=== PATIENT | male | born 1950 | race Caucasian/White ===

== ENCOUNTER 2021-02-28 17:40 | IRF | payer MEDICARE, MEDICAID, SELFPAY ==
--- NOTE | ~2021-02-28 | XR_ITS ---
EXAMINATION: XR chest 1V portable EXAM DATE: 03/02/2021 09:12 INDICATION: Shortness of breath. TECHNIQUE: Portable AP frontal chest x-ray was obtained. There is no prior study for comparison. FINDINGS: There is pacemaker/AICD device. There is aortic valve or stent. Some chronic hyperinflation . No confluent consolidation, pneumothorax or pleural effusion suspected. Cardiomediastinal silhouett e is normal. Large calcific curvilinear density projecting over left upper quadrant. IMPRESSION: 1. Hyperinflation. 2. No acute cardiopulmonary findings. Reviewed, dictated and finalized at location A.
[2021-02-28 17:40] VITALS: BMI 21.7
--- NOTE | 2021-02-28 18:04 | WPDREHABHP ---
H&P: HPI History of Present Illness Date/Time: 02/28/21 18:04 Chief Complaint: Cardiogenic shock Narrative: HISTORY OF PRESENT ILLNESS: The patient's primary rehab impairment category is Cardiac The etiologic diagnosis is cardiogenic shock I saw this patient [id number] on 02/28/2021 The patient is a 70-year-old male with severe aortic stenosis status post TAVR in 2018, enlarging abdominal aortic aneurysm 4.4 greater than 4.6, infrarenal abdominal aortic aneurysm 4.8 less than 5.8 since 2018, COPD, hypertension, pulmonary hypertension went into be tip V-tach VFib arrest with concerns for possible intramural hemorrhage for which the patient was emergently transferred from [place] to [facility] for vascular surgery consultation. Patient arrested on 02/04/2021 at his home around 11:00 a.m.. He was found unresponsive by his girlfriend Beckie Hickey. Patient received extensive resuscitation iwth cardioversion and meds in ambulance, ED. He was found to have AAA with possible hemorrhage and was transferred to [facility] ED. [facility] course: 1. Cardiogenic shock. Patient was hospitalized in ICU from 02/04 through . Patient had prolonged intubation. Patient required pressors. Patient had newly diagnosed heart failure with reduced ejection fraction. Patient was placed on low-dose beta-gigi Coreg 3.125 b.i.d. and losartan 25 mg daily. Patient will follow up with Dr. Hoffman in on 03/20 at 10:[address] [facility]. Patient was also continued on aspirin and a statin. 2. Complete heart block patient is now status post CR DT placement on 02/21 and continued amiodarone 400 mg daily heparin products will continue to be held. If DVT prophylaxis is required electrophysiology varitype operator must be involved. 3. Acute respiratory failure. Patient was intubated in setting of arrest extubated on 02/17 then reintubated on 02/21 for CR DT placement and extubated the same day. Patient still has O2 requirements of 2 L which patient states is his baseline. Patient also has a flail chest CT surgery was consulted and states that healing will occur within 6 weeks. 3. Diarrhea history of ileus an cardiac is intensive care unit with NG tube placement patient had aggressive bowel program and begin then developing diarrhea. Patient did receive vanc and cefepime cefepime while in ICU for presumed pneumonia. Stool cultures were negative for C diff. 4. Aortic aneurysm patient has 2 aneurysms which vascular surgery was consulted patient did receive a CTA of the chest and abdomen and pelvis for surgical planning patient will need follow-up with cardiothoracic surgery in a row in roughly at time of discharge with potential surgery 6 weeks post 5. Acute kidney injury is resolving. 6. Acute encephalopathy patient was in CCU required Ativan for delirium but since being transferred to the regular medicine floor his overall mentation has improved. 6. Patient with dysphagia patient required tube feedings while intubated ileus has now resolved. Patient currently is on a mechanical soft thin liquid diet. Patient has a hoarse quality from prolonged intubation ENT has been consult id and if no improvement with hoarseness, patient is to follow up with ENT on an outpatient basis. 7. Thrombocytopenia resolving secondary to cardiogenic shock 8. Patient fell within the hospital setting on 02/24 patient sustained no injuries. CT of the head was negative number next urinary tension on 02/27 patient had urinary retention and required cathing the patient has been started on Flomax postvoid residuals have been less than 150 and patient is now voiding well. Pertinent test results are ejection fraction of 45%. Procedures performed was in implantable cardioverter defibrillator dual-chamber and implantable cardioverter defibrillator ICD placement Therapy was initiated at the acute care facility and the patient transferred to us from [facility] on 02/29/20
--- NOTE | 2021-02-28 18:37 | ADMGEN ---
This patient, Naveen Bonds, was admitted to [facility] Room 222-02. Patient/family oriented to hospital policies and general routines including ID bracelet, bed and alarms, visiting hours, pain management, procedures, bathroom and other care routines, personal items, smoking policy, room service/diet, and visiting hours. Information on how to activate the Rapid Response Team has been discussed. Patient/Family are encouraged to report perceived risks to care and to ask questions if they do not understand what they are told or what they should do. Patient arrived to [facility] via [facility] at 1740, per EMS no issues on the way here but did use his albuterol inhaler several times, this is apparently something he does often and routinely, He is alert and oriented to person, place, and time
[2021-02-28 19:00] VITALS: BP 148/96; PULSE 81; RESP 20; TEMP 35.8; O2SAT 100
[2021-02-28 20:40] VITALS: PULSE 80; RESP 16; O2SAT 98
[2021-02-28 22:00] VITALS: BP 149/83; PULSE 80; RESP 16; TEMP 36.1; O2SAT 98
[2021-02-28] MEDS: TAMSULOSIN HCL 0.4 MG CAPSULE PO (22:18)
[2021-02-28 22:19] VITALS: PULSE 80
[2021-02-28] MEDS: carvediloL 3.125 MG TABLET PO (22:19)
[2021-03-01] VITALS (13 sets, daily range): BP systolic 105–133; BP diastolic 67–97; PULSE 78–85; RESP 18–30; TEMP 35.4–36.1; O2SAT 95–100; BMI 21.7
[2021-03-01 05:39] LABS: Basophils Percent Auto 0.1 % (0.2-1.2); Eosinophils Absolute Auto 0.1 K/mm3 (0-0.3); Eosinophils Percent Auto 1.4 % (0-4.4); Hematocrit 31.5 % (42.0-52.0); Hemoglobin 9.9 g/dL (14.0-18.0); Immature Granulocyte Absolute 0.03 K/mm3 (0.00-0.031); Immature Granulocyte Percent A 0.4 % (0-0.5); Immature Platelet Fraction Pct 9.2 % (0.9-11.2); Lymphocytes Absolute Auto 1.36 K/mm3 (0.9-3.2); Lymphocytes Percent Auto 18.4 % (18.3-44.2); Mean Corpuscular HGB Conc 31.4 g/dl (32-36); Mean Corpuscular Hemoglobin 28.5 pg (26-34); Mean Corpuscular Volume 90.8 fl (80-100); Mean Platelet Volume 11.5 fl (7.4-10.4); Monocytes Absolute Auto 1.3 K/mm3 (0.1-0.6); Monocytes Percent Auto 18.2 % (2.6-8.5); Neutrophils Absolute Auto 4.5 K/mm3 (1.3-6.7); Neutrophils Percent Auto 61.5 % (45.5-73.1); Platelet Count Result 123 k/mm3 (150-375); Red Blood Count 3.47 M/mm3 (4.6-6.20); Red Cell Distribution Width 14.9 % (11.5-14.5); White Blood Count 7.4 K/mm3 (4.5-10.0)
[2021-03-01 05:45] LABS: Alanine Aminotransferase 14 U/L (4-50); Albumin Level 3.4 g/dL (3.5-5.1); Alkaline Phosphatase 96 U/L (38-126); Anion Gap 3 mmol/L (8-16); Aspartate Amino Transferase 25 U/L (17-59); Bilirubin,Total 0.5 mg/dL (0.2-1.3); Blood Urea Nitrogen 5 mg/dL (9-20); Calcium 8.6 mg/dL (8.4-10.2); Carbon Dioxide 29 mmol/L (22-30); Chloride 98 mmol/L (98-107); Estimated CRCL calculation 69 ml/min; Estimated Glomerular Filt Rate > 60; Glucose 87 mg/dL (75-110); Potassium 4.4 mmol/L (3.4-5.0); Sodium 130 mmol/L (137-145)
[2021-03-01] MEDS: IPRATROPIUM BR 0.02% INH SOLN 0.5 MG/2.5 ML VIAL INHALATION ×2 (08:33→20:28)
[2021-03-01] MEDS: ATORVASTATIN 40 MG TABLET PO (09:21)
[2021-03-01] MEDS: carvediloL 3.125 MG TABLET PO ×2 (09:21→20:53)
[2021-03-01] MEDS: LOSARTAN POTASSIUM 25 MG TABLET PO (09:21)
[2021-03-01] MEDS: AMIODARONE HCL 200 MG TABLET 400 MG PO (09:22)
[2021-03-01] MEDS: ASPIRIN 81 MG ENTERIC TABLET PO (09:22)
--- NOTE | 2021-03-01 13:38 | PCSTNOTE ---
Please refer to the Bedside Swallow Evaluation in the EMR. Please note, silent aspiration cannot be ruled out at bedside.
--- NOTE | 2021-03-01 16:43 | WPDNEURORHBP ---
Subjective Date/time seen: 03/01/21 16:43 diagnosis is cardiogenic shock The patient is a 70-year-old male with severe aortic stenosis status post TAVR in 2018, enlarging abdominal aortic aneurysm 4.4 greater than 4.6, infrarenal abdominal aortic aneurysm 4.8 less than 5.8 since 2018, COPD, hypertension, pulmonary hypertension went into be tip V-tach VFib arrest with concerns for possible intramural hemorrhage for which the patient was emergently transferred from [place] to [facility] for vascular surgery consultation. Patient arrested on 02/04/2021 at his home around 11:00 a.m.. He was found unresponsive by his girlfriend Beckie Hickey. Patient received extensive resuscitation iwth cardioversion and meds in ambulance, ED. He was found to have AAA with possible hemorrhage and was transferred to [facility] ED. [facility] course: 1. Cardiogenic shock. Patient was hospitalized in ICU from 02/04 through . Patient had prolonged intubation. Patient required pressors. Patient had newly diagnosed heart failure with reduced ejection fraction. Patient was placed on low-dose beta-gigi Coreg 3.125 b.i.d. and losartan 25 mg daily. Patient will follow up with Dr. Hoffman in on 03/20 at 10:00 a.m. at [facility]. Patient was also continued on aspirin and a statin. 2. Complete heart block patient is now status post CR DT placement on 02/21 and continued amiodarone 400 mg daily heparin products will continue to be held. If DVT prophylaxis is required electrophysiology metallurgical analyst must be involved. 3. Acute respiratory failure. Patient was intubated in setting of arrest extubated on 02/17 then reintubated on 02/21 for CR DT placement and extubated the same day. Patient still has O2 requirements of 2 L which patient states is his baseline. Patient also has a flail chest CT surgery was consulted and states that healing will occur within 6 weeks. 3. Diarrhea history of ileus an cardiac is intensive care unit with NG tube placement patient had aggressive bowel program and begin then developing diarrhea. Patient did receive vanc and cefepime cefepime while in ICU for presumed pneumonia. Stool cultures were negative for C diff. 4. Aortic aneurysm patient has 2 aneurysms which vascular surgery was consulted patient did receive a CTA of the chest and abdomen and pelvis for surgical planning patient will need follow-up with cardiothoracic surgery in a row in roughly at time of discharge with potential surgery 6 weeks post 5. Acute kidney injury is resolving. 6. Acute encephalopathy patient was in CCU required Ativan for delirium but since being transferred to the regular medicine floor his overall mentation has improved. 6. Patient with dysphagia patient required tube feedings while intubated ileus has now resolved. Patient currently is on a mechanical soft thin liquid diet. Patient has a hoarse quality from prolonged intubation ENT has been consult id and if no improvement with hoarseness, patient is to follow up with ENT on an outpatient basis. 7. Thrombocytopenia resolving secondary to cardiogenic shock 8. Patient fell within the hospital setting on 02/24 patient sustained no injuries. CT of the head was negative number next urinary tension on 02/27 patient had urinary retention and required cathing the patient has been started on Flomax postvoid residuals have been less than 150 and patient is now voiding well. Pertinent test results are ejection fraction of 45%. Procedures performed was in implantable cardioverter defibrillator dual-chamber and implantable cardioverter defibrillator ICD placement Therapy was initiated at the acute care facility and the patient transferred to us from [facility] on 02/28/2021 Review of Systems Constitutional: Constitutional: Reports fatigue and Reports weakness Eyes: Eyes: Reports no additional eye complaints Cardiovascular: Cardiovascular: Reports no additional cardiovascular co
[2021-03-01] MEDS: BUDESONIDE/FORMOTEROL (*SP) 160-4.5 MCG 6 GM INH 1 PUFF INHALATION (17:07)
[2021-03-01] MEDS: TAMSULOSIN HCL 0.4 MG CAPSULE PO (17:07)
[2021-03-02 06:00] VITALS: BP 125/66; PULSE 55; RESP 24; TEMP 35.9; O2SAT 97
[2021-03-02] MEDS: BUDESONIDE/FORMOTEROL (*SP) 160-4.5 MCG 6 GM INH 1 PUFF INHALATION (07:52)
[2021-03-02] MEDS: IPRATROPIUM BR 0.02% INH SOLN 0.5 MG/2.5 ML VIAL INHALATION (07:52)
[2021-03-02 07:53] VITALS: PULSE 83; RESP 20
[2021-03-02 08:00] VITALS: O2SAT 97
--- NOTE | 2021-03-02 09:00 | ECG_ITS ---
Measurements Intervals [place] Rate: 80 P: 267 NH: 121 QRS: 79 QRSD: 150 T: 247 QT: 520 QTc: 600 Interpretive Statements ELECTRONIC ATRIAL PACEMAKER ELECTRONIC VENTRICULAR PACEMAKER BASELINE ARTIFACT- I, II, III, AVR, AVL, AVF, V1-V6 NO FURTHER INTERPRETATION IS POSSIBLE ATYPICAL ECG Electronically Signed On 03-02-2021 10:29:32 CDT by Kayden Melchor D.O.
[2021-03-02 09:11] LABS: Glucose Point of Care 95 mg/dl (65-105)
[2021-03-02 09:20] LABS: Glucose Point of Care 93 mg/dl (65-105)
[2021-03-02 09:48] LABS: Alveolar/Arterial O2 Gradient 127.3 mmHg; Base Excess ABG 1.2 mEq/l (+/-2.0); Fractional Inspired Oxygen 32 %; HCO3 ABG 26.8 mEq/l (22.0-26.0); Oxygen Content ABG 11.5 %vol (16.0-22.0); PCO2 ABG 47.2 mmHg (35.0-45.0); PO2 FiO2 Ratio Arterial Blood 1.42 %; Total Hemoglobin 10.5 g/dL (12.0-18.0); pH ABG 7.372 (7.350-7.450)
[2021-03-02 09:53] LABS: PO2 ABG 45.6 mmHg (80.0-100.0)
--- NOTE | 2021-03-02 09:56 | PCPTNOTE ---
Attempted to see patient at 8:30 this AM for PT session. Patient demonstrated shortness of breath and complained of dizziness. RN and Dr. Ray informed. Patient did not complete any PT minutes this AM. Sindy Madrid PTA
--- NOTE | 2021-03-02 10:18 | PC.NURSE ---
Addendum entered by Lily Magana RN 03/02/21 10:23: code blue was cancelled. Original Note: late entry: 929: Rapid Response was called. Dr Ray in patient's room when nursing arrived. Patient was SOB and stated his SPO2 kept dropping. Patient had become unresponsive for a short amount of time. Accucheck obtained and patient noted at 75. Patient was also noted to be diaphoretic as well. Stat EKG et CXR obtained. Nursing still at bedside and called back due to patient not responding again. Patient again noted to be diaphoretic. Shawna danielson was called. compressions started et patient coughed then rolled to side. nursing attempting to start an IV. patient continued to have o2 on per nasal cannula. continues to be at bedside as well. patient being moved to ICU 1. Report given to [place]. pt moved off unit at approximately 0944.
[2021-03-02 10:32] VITALS: BP 87/56; PULSE 78; RESP 16; O2SAT 98
--- NOTE | 2021-03-02 15:48 | PM.TDS ---
Transfer Discharge Sum: Prov Provider Date of admission: 02/28/21 17:40 Primary care physician: UNKNOWN,DOCTOR Admitting clinician: Aria De Guzman DO DS: Admitting Diagnosis Admitting Diagnosis Admitting Diagnosis: significant cardiac hospital stay with cardiogenic shock DS: Discharge Diagnosis Discharge Diagnosis (1) Hypertension: Code(s): I10 - Essential (primary) hypertension Status: Acute Assessment and Plan: Cozaar 25 mg daily Coreg 3.125 mg q.12 (2) Pulmonary hypertension: Code(s): I27.20 - Pulmonary hypertension, unspecified Status: Acute (3) COPD (chronic obstructive pulmonary disease): Code(s): J44.9 - Chronic obstructive pulmonary disease, unspecified Status: Acute Assessment and Plan: Atrovent q.12, Symbicort 1 puff daily (4) Cardiogenic shock: Code(s): R57.0 - Cardiogenic shock Status: Acute Assessment and Plan: amiodarone 400 mg daily aspirin 81 mg daily (5) Abdominal aortic aneurysm: Code(s): I71.4 - Abdominal aortic aneurysm, without rupture Status: Acute (6) Cardiac arrest: Code(s): I46.9 - Cardiac arrest, cause unspecified Status: Acute (7) History of difficult intubation: Code(s): Z91.89 - Other specified personal risk factors, not elsewhere classified Status: Acute (8) Flail chest: Code(s): S22.5XXA - Flail chest, initial encounter for closed fracture Status: Acute (9) History of ileus: Code(s): Z87.19 - Personal history of other diseases of the digestive system Status: Acute (10) BPH (benign prostatic hyperplasia): Code(s): N40.0 - Benign prostatic hyperplasia without lower urinary tract symptoms Status: Acute Assessment and Plan: Flomax (11) Anisocoria: Code(s): H57.02 - Anisocoria Status: Acute (12) Cardiomyopathy: Code(s): I42.9 - Cardiomyopathy, unspecified Status: Acute Transfer Discharge Sum: Med Medications Active and Home Medications: Home Medications albuterol 90 mcg INHALATION Q4H PRN 02/28/21 [History Confirmed 03/02/21] albuterol sulfate 2.5 mg INHALATION Q6H PRN 02/28/21 [History Confirmed 03/02/21] ipratropium bromide [Atrovent] 2.5 ml INHALATION BID 02/28/21 [History Confirmed 03/02/21] Transfer Discharge Sum: Hosp Hospital Course Hospital course: The patient is a 70-year-old male with severe aortic stenosis status post TAVR in 2018, enlarging abdominal aortic aneurysm 4.4 greater than 4.6, infrarenal abdominal aortic aneurysm 4.8 less than 5.8 since 2018, COPD, hypertension, pulmonary hypertension went into be tip V-tach VFib arrest with concerns for possible intramural hemorrhage for which the patient was emergently transferred from [place] to [facility] for vascular surgery consultation. Patient arrested on 02/04/2021 at his home around 11:00 a.m.. He was found unresponsive by his girlfriend Beckie Hickey. Patient received extensive resuscitation iwth cardioversion and meds in ambulance, ED. He was found to have AAA with possible hemorrhage and was transferred to [facility] ED. [facility] course: 1. Cardiogenic shock. Patient was hospitalized in ICU from 02/04 through . Patient had prolonged intubation. Patient required pressors. Patient had newly diagnosed heart failure with reduced ejection fraction. Patient was placed on low-dose beta-gigi Coreg 3.125 b.i.d. and losartan 25 mg daily. Patient will follow up with Dr. Hoffman in on 03/20 at 10:00 a.m. at [facility]. Patient was also continued on aspirin and a statin. 2. Complete heart block patient is now status post CR DT placement on 02/21 and continued amiodarone 400 mg daily heparin products will continue to be held. If DVT prophylaxis is required electrophysiology call or contact centre team leader must be involved. 3. Acute respiratory failure. Patient was intubated in setting of arrest extubated o
[2021-03-03 07:33] LABS: Device NASAL CANNULA
== END 2021-03-02 09:44 | disposition short-term general hospital (02) | DRG 293 ==
PROVIDERS: Internal Medicine; Admitting Provider Physical Medicine & Rehabilitation; Visit Provider Physical Medicine & Rehabilitation
DX: R57.0 Cardiogenic shock (principal); I71.4 Abdominal aortic aneurysm, without rupture; R06.09 Other forms of dyspnea; R61 Generalized hyperhidrosis; R46.4 Slowness and poor responsiveness; R13.10 Dysphagia, unspecified; D69.6 Thrombocytopenia, unspecified; I35.0 Nonrheumatic aortic (valve) stenosis; I10 Essential (primary) hypertension; I27.20 Pulmonary hypertension, unspecified; J44.9 Chronic obstructive pulmonary disease, unspecified; L89.151 Pressure ulcer of sacral region, stage 1; W19.XXXD Unspecified fall, subsequent encounter; Z86.74 Personal history of sudden cardiac arrest; Z98.890 Other specified postprocedural states; Z95.2 Presence of prosthetic heart valve; Z87.891 Personal history of nicotine dependence; R53.1 Weakness; Z48.812 Encounter for surgical aftercare following surgery on the circulatory system; Z95.810 Presence of automatic (implantable) cardiac defibrillator; R39.11 Hesitancy of micturition; S22.5XXD Flail chest, subsequent encounter for fracture with routine healing
CPT/HCPCS: 36415; 36600; 71045; 80053; 82805; 82948; 85025; 85055; 92610; 93005; 94640; 97110; 97161; 97165; A9270

== ENCOUNTER 2021-03-02 09:50 | Inpatient (IN) | payer MEDICARE, MEDICAID, SELFPAY ==
[2021-03-02] VITALS (29 sets, daily range): BP systolic 71–140; BP diastolic 35–96; PULSE 67–104; RESP 24–34; TEMP 34.3–36.6; O2SAT 91–100; BMI 21.3
--- NOTE | 2021-03-02 | ECHO_ITS ---
Patient Info Name: Naveen Bonds Age: 70 years : 1950 Gender: Male Ht: 69 in Wt: 160 lbs BSA: 1.88 m2 HR: 80 bpm BP: 76 / 51 mmHg Heart Rhythm: Paced Technical Quality: Good Exam Date: 03/02/2021 1:07 PM Exam Location: [facility] Patient Status: Inpatient Admit Date: 03/02/2021 Staff Ordering Physician: Hardeep Ling MD Data Collection Associate: Bennie Manrique, MARK, RT Attending Provider: Kiana Feldman MD Exam Type: CA echo dop color flow w con Study Info Indications I50.9 - Heart failure, unspecified Complete two-dimensional, color flow and Doppler transthoracic echocardiogram is performed with contrast to opacify the left ventricle and to improve the deliniation of the left ventricle endocardial borders. Summary 1. Technically difficult study with limited views. 2. Left ventricular chamber dimension is normal. 3. Left ventricular systolic function is mildly reduced, estimated at 45-50%. 4. There is moderately increased left ventricular wall thickness. 5. Left ventricular septal wall motion is abnormal with septal motion related to pacing. 6. There is mild mitral valve regurgitation. 7. There is mild tricuspid valve regurgitation. 8. No pulmonary hypertension, estimated pulmonary arterial systolic pressure is 34 mmHg. 9. There is no TAVR aortic valve stenosis with peak velocity 1.8 m/sec, mean gradient 7 mmHg. 10. There is no regurgitation of the TAVR aortic valve. Left Ventricle Left ventricular chamber dimension is normal. Left ventricular systolic function is mildly reduced, estimated at 45-50%. There is moderately increased left ventricular wall thickness. Left ventricular septal wall motion is abnormal with septal motion related to pacing. The left ventricular diastolic function is grade I diastolic dysfunction. Technically difficult study with limited views. Right Ventricle Right ventricular chamber dimension is normal. Right ventricular systolic function is normal. Linear artifact in right ventricle suggestive of catheter(s), pacemaker lead(s), or ICD lead(s). Left Atria Left atrial chamber dimension is not well visualized. Right Atria Right atrial chamber dimension is not well visualized. Linear artifact in the right atrium suggestive of catheter(s), pacemaker lead(s), or ICD lead(s). Aortic Valve The TAVR aortic valve is not well visualized. There is no TAVR aortic valve stenosis with peak velocity 1.8 m/sec, mean gradient 7 mmHg. There is no regurgitation of the TAVR aortic valve. Pulmonic Valve The pulmonic valve is not well visualized. There is trace pulmonic regurgitation. Mitral Valve The mitral valve has thickened leaflets. There is mild mitral valve regurgitation. The mitral valve annulus is mildly calcified. Tricuspid Valve The tricuspid valve leaflets are normal. There is mild tricuspid valve regurgitation. No pulmonary hypertension, estimated pulmonary arterial systolic pressure is 34 mmHg. Pericardium/Pleural The pericardium appears normal. There is trivial pericardial effusion. Inferior Vena Cava Normal inferior vena cava with >50% collapse upon inspiration consistent with normal right atrial pressure, 5 mmHg. Aorta The aortic root size at the sinus of Valsalva is normal. Left Ventricular Outflow Tract Name Value Normal
--- NOTE | ~2021-03-02 | US_ITS ---
EXAMINATION: US venous doppler LE EXAM DATE: 03/02/2021 15:07 INDICATION: Shortness of breath. DVT. Respiratory problem. TECHNIQUE: Multiple grayscale, color flow and Doppler images of the lower extremity deep venous syste ms bilaterally were obtained and reviewed. There is no prior study for comparison. FINDINGS: RIGHT SIDE Common femoral: --------Oval-shaped 5 x 10 mm intraluminal region, probably thrombus. Profunda femoral: ------- Normal. Femoral: Normal. Popliteal: Normal. Posterior tibial: --------- Normal. Peroneal: Normal. Gastrocnemius: Not visualized. Soleus: Not visualized. Greater saphenous: ----- Normal. Lesser saphenous: ------ Not visualized. LEFT SIDE Common femoral: -------- Normal. Profunda femoral: ------- Normal. Femoral: Normal. Popliteal: Normal. Posterior tibial: --------- Normal. Peroneal: Normal. Gastrocnemius: Not visualized. Soleus: Not visualized. Greater saphenous: ----- Normal. Lesser saphenous: ------ Not visualized. IMPRESSION: 1. Oval echogenicity in left common femoral vein most likely thrombus. Reviewed, dictated and finalized at location A.
--- NOTE | ~2021-03-02 | CT_ITS ---
EXAMINATION: CT brain wo [facility] EXAM DATE: 03/02/2021 12:00 INDICATION: Unequal Pupils TECHNIQUE: Spiral CT of the head was performed without contrast. Axial, coronal and sagittal images were reviewed. The dose-length product (DLP) for this examination was 605.33 mGy-cm. The exposure w as tailored according to patient size, and iterative reconstruction (ASIR) was used as additional dos e reduction technique. There is no prior study for comparison. FINDINGS: There is no acute intraparenchymal hemorrhage. No evidence of intraparenchymal brain mass lesion. No evidence of acute infarction. Please note that initial head CT has limited sensitivity f or small or acute infarctions. There is mild periventricular and subcortical hypodensity, nonspecific but probably related to small vessel ischemic disease. There is moderate prominence of the sulci a nd ventricles related to cerebral atrophy. There is intracranial carotid arteriosclerosis. There a re no extra-axial collections. There is no mass effect or midline shift. The orbits are unremarkabl e. Soft tissue is unremarkable. The visualized sinuses and mastoid air cells are well aerated. IMPRESSION: 1. No acute intracranial findings. 2. Chronic age related findings. Reviewed, dictated and finalized at location A.
--- NOTE | ~2021-03-02 | CT_ITS ---
EXAMINATION: CTA chest PE abdomen pel EXAM DATE: 03/02/2021 12:01 INDICATION: PEA Arrest, AAA. Unable pupils. TECHNIQUE: Spiral CTA of the chest (pulmonary arteries) was performed with 100 cc Omnipaque 350 intr avenous contrast injection. Images were acquired during the pulmonary arterial phase. Coronal maxi mum intensity projection 3D-reconstructions were created by the technologist on dedicated workstation . Axial, coronal and sagittal reformatted images were reviewed. Spiral CT of the abdomen and pelvis was then performed with the same intravenous contrast injection. Axial, coronal and sagittal reform atted images were reviewed. The dose-length product (DLP) for this examination was 783.99 mGy-cm. T he exposure was tailored according to patient size (auto mA exposure control), and iterative reconst ruction (ASIR) was used as additional dose reduction technique. There is no prior study for comparis on. FINDINGS: CHEST: There is a lingular segmental pulmonary embolism. There is a stent across the aortic valve. M ildly aneurysmal ascending aorta at 4.4 cm. No aortic dissection. No thoracic aortic dissection. Mi ld to moderate emphysema. There is a nodule of soft tissue density in the left upper lobe perihilar r egion measuring 1.6 x 1.1 cm, most likely primary lung cancer. Central location precludes CT-guided b iopsy. Recommend PET/CT to evaluate possibility of lung cancer. There is mild to moderate emphysema. Some scattered regions of post infectious residua. Right lower lobe subsegmental atelectasis. Small r ight pleural effusion. Tracheobronchial tree is patent. There is no mediastinal, hilar or axillary lymphadenopathy. There is no pneumothorax. Heart normal in size. There is mild coronary arteri al calcification, arterial sclerosis. ABDOMEN PELVIS: The abdominal aorta has fusiform aneurysmal dilation up to 6 cm, starting about 2 cm below the renal arteries. There is also difference in density between plaque or thrombus and also a c rescent-shaped portion of the right posterolateral aortic wall, appearance highly suggestive of intra mural dissection/wall hematoma. No fat stranding surrounding the aorta. There is also more saccular portion to the aneurysm at its uppermost margin measuring about 1.5 cm. The liver, spleen, adrenal glands and pancreas are unremarkable. Gallbladder is unremarkable. No bi liary obstruction. Portal and splenic veins are patent. Kidneys enhance symmetrically. There is no hydronephrosis. The prostate is unremarkable. The bladder is collapsed with Rubin catheter balloo n anchor inside. There is no retroperitoneal or pelvic lymphadenopathy. There are no findings to suggest appendicitis. The stomach and small bowel are unremarkable. There is dense material in the colon probably barium from prior procedure. Diffuse bladder wall edema suspi cious for colitis. No free intraperitoneal gas. There are no osteoblastic or osteolytic lesions ginette ntified. IMPRESSION: 1. Both fusiform and saccular infrarenal abdominal aortic aneurysms, with probable acute intramural hematoma/dissection. Reportedly this is known finding. 2. Lingular segmental pulmonary embolism, low clot burden. 3. Left upper lobe perihilar nodule most likely lung cancer; recommend PET/CT. 4. Ascending aortic 4.4 cm aneurysm. 5. Small right pleural effusion. 6. Diffuse bladder wall mild to moderate edema suspicious for colitis. I discussed abdominal aneurysm with intramural hematoma, pulmonary embolism, left upper lobe nodule mindi Ling at 03/02/2021 12:25 CDT. He states patient was recently discharged from [facility] having been evaluated for abdominal hernia and intramural hematoma. Study is being pushed to [facility] and a disc being prepared. Reviewed, dictated and finalized at [facility]
--- NOTE | 2021-03-02 10:00 | P.PNCROSS_ITS ---
Event Note Event Note Event Note: INTELLIGENCE APPLICATIONS Note 9:00 am called to INTELLIGENCE APPLICATIONS , pt was reported to have become diaphoretic, unresponsive; at time of my arrival he was found to be diaphoretic and pursed lipped breathing using accessory muscles,oriented with improving alertness. BG 70 juice given to pt . pt w end stage COPD considered to have returned to baseline. VS stable rapid response terminated 10 minutes later pt again lost consciousness. diaphoretic w loss of normal color to face, brief period of agonal breathing, pulse was not able to be palpated, and CPR initiated. Pt opened his eyes almost immediately after CPR initiated and was rolled to his side to prevent aspiration, if vomiting were to occur. He has PPM/AICD that did not deliver a shock. He remained conscious and ICU attending arrived. He again returned to his baseline mental status continued to breath w pursed lip breathing pattern and using accessory muscles (reported to be his baseline). VS stable and pt transferred to ICU for close observation and for further investigation of etiology of events today.
--- NOTE | 2021-03-02 10:03 | ADMGEN ---
This patient, Naveen Bonds, was admitted to Intensive Care Unit-1. Patient/family oriented to hospital policies and general routines including ID bracelet, bed and alarms, visiting hours, pain management, procedures, bathroom and other care routines, personal items, smoking policy, room service/diet, and visiting hours. Patient was moved from [facility] after rapid response Information on how to activate the Rapid Response Team has been discussed. Patient/Family are encouraged to report perceived risks to care and to ask questions if they do not understand what they are told or what they should do.
--- NOTE | 2021-03-02 10:29 | WPDCNINT ---
Assessment and Plan Assessment and plan (1) Cardiac arrest: Code(s): I46.9 - Cardiac arrest, cause unspecified Status: Acute Assessment and Plan: Patient had a brief episode where the staff to not feel his pulse and I was told it lasted only 10 seconds. He received 1 compression and then woke up so it is hard to know what exactly happened. Patient has pacemaker and AICD on credit and collection manager. Patient was not shocked by his AICD and EKG showed AV paced rhythm at a rate of 80. Patient could have had arrhythmia, or PEA from low blood pressure as patient has severe cardiomyopathy, another likely possibility could be PE as patient was not on any DVT prophylaxis but was of active as per staff from rehab Check CTA lungs Interrogate his pacemaker/AICD Blood pressure is now adequate but will give a small fluid bolus Check electrolytes, hemoglobin, lactic acid, troponin Repeat echocardiogram Continue amiodarone Cardiology consult (2) Cardiomyopathy: Code(s): I42.9 - Cardiomyopathy, unspecified Status: Acute Assessment and Plan: Check echocardiogram (3) Acute respiratory failure: Code(s): J96.00 - Acute respiratory failure, unspecified whether with hypoxia or hypercapnia Status: Inactive Assessment and Plan: Chest x-ray done this morning does not show any infiltrates or pulmonary edema Appears to be secondary severe COPD Patient is not very hypoxic and is maintaining his saturation O2 to 3 L of oxygen but is definitely tachypneic and using accessory muscles Will use BiPAP now and an and on as needed basis Check CTA to rule out PE (4) COPD (chronic obstructive pulmonary disease): Code(s): J44.9 - Chronic obstructive pulmonary disease, unspecified Status: Acute Assessment and Plan: DuoNebs and Solu-Medrol (5) Flail chest: Code(s): S22.5XXA - Flail chest, initial encounter for closed fracture Status: Acute Assessment and Plan: He developed placed test after rib fractures from his CPR on his last admission. Patient was evaluated by thoracic surgery at [facility] recently and they recommended conservative management It is not impacting his ventilation as noted on his ABG Will order BiPAP for work of breathing support (6) Abdominal aortic aneurysm: Code(s): I71.4 - Abdominal aortic aneurysm, without rupture Status: Acute Assessment and Plan: Check CT abdomen pelvis (7) Anisocoria: Code(s): H57.02 - Anisocoria Status: Acute Assessment and Plan: Noted on physical exam. Patient denies any history of eye surgery Will check head CT as patient is already going for CT chest Additional Plan DVT prophylaxis -Lovenox Nutrition -NPO at this time Code Status -discussed with patient. He does not want to be intubated but but also wants to be Full Code Total Critical Care Time - 60 minutes Due to a high probability of clinically significant, life threatening deterioration, the patient required my highest level of preparedness to intervene emergently and I personally spent this critical care time directly and personally managing the patient. This critical care time included obtaining a history; examining the patient; pulse oximetry; ordering and review of studies; arranging urgent treatment with development of a management plan; evaluation of patient's response to treatment; frequent reassessment; and discussions with other providers. It was exclusive of separately billable procedures and treating other patients and teaching time. Please see Assessment and Plan section and the rest of the note for further information on patient assessment and treatment Director Cpg Consult Note Consult date: 03/02/21 Time Seen: 09:30 HPI: Naveen Bonds is a 70 year old male with past medical history of severe aortic stenosis status post TAVR in 2018, enlarging abdominal aortic aneurysm since 2018, COPD, hypertension, pulmonary hypertension who was rece
[2021-03-02] MEDS: LIDOCAINE HCL 1% LOCAL INJ 2 ML AMPUL 5 ML INFILTRATE (10:40)
--- NOTE | 2021-03-02 11:00 | PM.IMHP ---
H&P: HPI History of Present Illness Date/Time: 03/02/21 10:37 70yo M w admitted to ICU from inpatient rehab after 2 periods of unresponsiveness. The second episode pt was found to be pulseless and a Code Blue was called, no ACLS medications were administered and pt become responsive after chest compressions were initiated. Prior to rehab he was treated in ER at [place] after he suffered a cardiac arrest on 02/04/2021 at his home. He was resuscitated and subsequently found to have AAA with possible hemorrhage and was transferred to [facility] for CTS consultation for possible intramural hemorrhage. Patient was hospitalized in ICU from 02/04- 02/22. Patient had prolonged intubation with cardiogenic shock, ROWAN, and complete heart block requiring implantable cardioverter defibrillator dual-chamber ICD placement placement on 02/21/21.Pt was discharged from [facility] on 02/28/21 and transferred to [place] inpt rehab. Chief Complaint: brief episode of unresponsiveness x 2 Review of Systems Review of Systems: All systems reviewed & are unremarkable except as noted in HPI and below PMFSH Past Medical History Medical History Abdominal aortic aneurysm Acute kidney injury Acute respiratory failure Aortic stenosis Cardiogenic shock COPD (chronic obstructive pulmonary disease) Encephalopathy History of difficult intubation History of ileus Hypertension Pulmonary hypertension Required emergency intubation Surgical History Surgical History History of permanent cardiac pacemaker placement S/P TAVR (transcatheter aortic valve replacement) Family History Family History Other No pertinent family history Social History Social History Social History: patient was a former smoker quit 3 years ago. Patient lives with his girlfriend. Patient has 1 son and 1 daughter. Patient lives with his girlfriend in a 1 level home with a basement. There are 5 steps to enter. The patient does not need to use the basement. The patient was completely independent prior to no assistive devices. The significant other is available to assist the patient 247 if needed. Smoking packs per day: 1 Smoking cigarettes per day: 20.0 Years smoked: 50 Smoking pack-years: 50.00 Smoking status: Current every day smoker Tobacco type: cigarettes Second hand tobacco smoke exposure: No Smoking end date: 03/02/18 Alcohol intake: former Drinks per week: 0 Substance use: never Gender identity (if verbalized by the patient): Male Spiritual care concerns: No Meds Home Medications and Allergies Home Medications Medication Instructions Recorded Confirmed Type albuterol 90 mcg INHALATION Q4H PRN 02/28/21 03/02/21 History albuterol sulfate 2.5 mg INHALATION Q6H PRN 02/28/21 03/02/21 History ipratropium bromide [Atrovent] 2.5 ml INHALATION BID 02/28/21 03/02/21 History Allergies Allergy/AdvReac Type Severity Reaction Status Date / Time No Known Allergies Allergy Verified 02/28/21 21:47 Vital Signs Vital Signs - 24 hr 03/02/21 10:00 03/02/21 10:02 03/02/21 11:12 Temperature 95.9 F L Pulse Rate 82 84 Respiratory Rate 28 H Blood Pressure 131/93 H Pulse Oximetry 98 98 98 03/02/21 11:28 03/02/21 11:29 03/02/21 11:30 Temperature 93.9 F L 93.9 F L 93.9 F L Pulse Rate 80 80 Respiratory Rate 32 H 29 H Blood Pressure 75/56 L 86/61 L Pulse Oximetry 98 100 03/02/21 12:00 03/02/21 12:15 03/02/21 12:30 Temperature 94 F L 93.8 F L 93.9 F L Pulse Rate 84 80 82 Respiratory Rate 31 H 27 H 24 H Blood Pressure 78/57 L 86/58 L 93/77 L Pulse Oximetry 98 100 96 03/02/21 12:49 03/02/21 13:00 03/02/21 13:30 Temperature 93.8 F L 94.2 F L Pulse Rate 80 82 67 Respiratory Rate 30 H 33 H
--- NOTE | 2021-03-02 11:05 | PM.CNCAR ---
Assessment and Plan Additional Plan 1- Unresponsive episode this morning likely secondary to low blood pressure. 2- new diagnosis of pulmonary embolism 2- history of ventricular tachycardia and cardiac arrest status post AICD. 3- severe nonischemic cardiomyopathy. 4- debility 5- infrarenal aortic aneurysm, stable this patient had a long history with recent cardiopulmonary arrest and ventricular tachycardia February 04, 2021. At that time was admitted to [facility] where he underwent cardiac catheterization that was reported no significant CAD and underwent AICD. This morning he had a brief episode of unresponsiveness and with inability to feel pulse and at that time his blood pressure was in the 80s. Blood sugar was okay. He is hypothermic. patient was not getting DVT prophylaxis because of intramural hematoma of the infra renal aortic aneurym. CT of chest shows acute pulomnary embolism. if there is contra-indication for anticoagulation, consider IVC filter. agree with some IV fluids. agree with repeating echocardiogram. History of Present Illness History of Present Illness Consult date/time: Date of haorefn07/20/21 11:05 Requesting physician: Hardeep Ling MD Consult reason: Other ( cardiac arrest) Reason For Visit: unresponsive Narrative: Naveen Bonds is a 70 year old male with past medical history of severe aortic stenosis status post TAVR in 2018, enlarging abdominal aortic aneurysm 4.8 cm since 2018, COPD, hypertension, pulmonary hypertension who was recently admitted to [facility] after he had out of hospital V-tach VFib arrest February 04, 2021. he received received a AICD . He was on mechanical ventilation for weeks. He also had acute kidney injury which resolved, he received CPR but did not sustain significant anoxic injury, he was in cardiogenic shock, he also developed flail chest which was evaluated by thoracic surgery at [facility] and stated that it will heal in [address] head done at that time was negative. He has severe COPD and is on home oxygen. Echocardiogram done at [facility] showed severe cardiomyopathy with EF of 27% and RV dysfunction. Left heart catheterization report to have nonobstructive coronary disease. Patient was also started on amiodarone. Two days ago patient was admitted to [facility] rehab from [facility] for inpatient rehab. Apparently he was on losartan 25 mg daily, Coreg 3.125 mg b.i.d. and amiodarone 400 mg daily. Apparently [facility] was called this morning because they could not feel pulse and brief CPR was done and patient woke up right away. His blood pressure was in the 80s. EKG shows paced rhythm at heart rate 80. He does have chest pain from flail chest. he has some shortness of breath but otherwise alert and oriented x3. His blood sugars has been in the 90s. because patient was not receiving DVT prophylaxis recommended that he get CTA thorax rule out pulmonary embolism. Also was noted on physical exam to have anisocoria and therefore will be getting CT of the head. CTA chest showed pulmonary embolism, ascendinig aortic aneurysm 4.4. cm and infrarenal aortic aneurysm which has intramural hemotoma( i believe patient had this this finding at [facility]). CT head did not show acute finding. white cell count 10.4 K, hemoglobin 9, EKG reviewed analyze myself shows sequential atrial and ventricular pacing. Chest x-ray reviewed myself analyzed myself looks unremarkable. Review of Systems Constitutional: Constitutional: Denies chills, Reports fatigue, Denies fever(s) and Denies poor appetite Eyes: Eyes: Denies eye discharge, Denies loss of vision, Denies eye pain and Denies photophobia ENT: Denies dizziness, Denies epistaxis, Denies nasal congestion and Denies sore throat Cardiovascular: Cardiovascular: Reports chest pain, Denies syncope, Denies pedal edema, Denies leg edema, Denies palpitations, Reports dyspnea, Reports dyspnea on exertion and Reports orthopne
[2021-03-02 11:07] LABS: Basophils Percent Auto 0.2 % (0.2-1.2); Eosinophils Absolute Auto 0.1 K/mm3 (0-0.3); Eosinophils Percent Auto 0.8 % (0-4.4); Hematocrit 30.2 % (42.0-52.0); Hemoglobin 9.4 g/dL (14.0-18.0); Immature Granulocyte Absolute 0.08 K/mm3 (0.00-0.031); Immature Granulocyte Percent A 0.8 % (0-0.5); Immature Platelet Fraction Pct 11.1 % (0.9-11.2); Lymphocytes Absolute Auto 1.29 K/mm3 (0.9-3.2); Lymphocytes Percent Auto 12.1 % (18.3-44.2); Mean Corpuscular HGB Conc 31.1 g/dl (32-36); Mean Corpuscular Hemoglobin 28.9 pg (26-34); Mean Corpuscular Volume 92.9 fl (80-100); Mean Platelet Volume 11.5 fl (7.4-10.4); Monocytes Absolute Auto 1.3 K/mm3 (0.1-0.6); Monocytes Percent Auto 12.6 % (2.6-8.5); Neutrophils Absolute Auto 7.8 K/mm3 (1.3-6.7); Neutrophils Percent Auto 73.5 % (45.5-73.1); Platelet Count Result 138 k/mm3 (150-375); Red Blood Count 3.25 M/mm3 (4.6-6.20); White Blood Count 10.7 K/mm3 (4.5-10.0)
[2021-03-02] MEDS: SODIUM CHLORIDE 0.9% IV 1,000 ML 999 ML IV CONT (11:19)
[2021-03-02 11:56] LABS: Alanine Aminotransferase 14 U/L (4-50); Albumin Level 3.2 g/dL (3.5-5.1); Alkaline Phosphatase 90 U/L (38-126); Anion Gap 4 mmol/L (8-16); Aspartate Amino Transferase 26 U/L (17-59); Bilirubin,Total 0.4 mg/dL (0.2-1.3); Blood Urea Nitrogen 10 mg/dL (9-20); Calcium 8.7 mg/dL (8.4-10.2); Carbon Dioxide 30 mmol/L (22-30); Chloride 98 mmol/L (98-107); Estimated Glomerular Filt Rate 60; Glucose 98 mg/dL (75-110); Magnesium 1.9 mg/dL (1.6-2.3); Sodium 132 mmol/L (137-145)
[2021-03-02 12:08] LABS: Troponin I 0.029 ng/mL (0.000-0.034)
[2021-03-02 12:23] LABS: Glucose Point of Care 84 mg/dl (65-105)
[2021-03-02] MEDS: ATORVASTATIN 40 MG TABLET PO (12:48)
[2021-03-02] MEDS: ENOXAPARIN 40 MG/0.4 ML SYRINGE SUB-Q (12:48)
[2021-03-02] MEDS: ASPIRIN 325 MG ENTERIC TABLET PO (12:48)
[2021-03-02] MEDS: AMIODARONE HCL 200 MG TABLET 400 MG PO (12:49)
--- NOTE | 2021-03-02 13:41 | P.PNCROSS_ITS ---
Event Note Event Note Event Note: CT findings reviewed with radiology and report reviewed. Called and spoke to Dr. Dubois with vascular surgery at [facility]. She does not feel that aneurysm appears any significantly different from the last CT but she is willing to see the patient that if cardiology accept him to CCU. She also said it will be okay to start heparin drip without bolus for his PE. Waiting callback from CCU triage physician [facility]. His AICD pacemaker interrogation was unremarkable
[2021-03-02] MEDS: SODIUM CHLORIDE 0.9% IV 500 ML IV CONT ×2 (13:43→14:23)
[2021-03-02] MEDS: ALBUTEROL SULFATE NEB 2.5 MG/0.5 ML INH INHALATION ×2 (13:47→19:50)
[2021-03-02] MEDS: IPRATROPIUM BR 0.02% INH SOLN 0.5 MG/2.5 ML VIAL INHALATION ×2 (13:47→19:51)
[2021-03-02 14:13] LABS: Troponin I 0.026 ng/mL (0.000-0.034)
[2021-03-02 14:15] LABS: Add Urine Microscopic? YES; Appearance Urine Cloudy (Clear); Bilirubin Urine Negative (Negative); Blood Urine 1+ (Negative); Color Urine Yellow (Yellow); Glucose Urine UA Negative (Negative); Ketones Urine Negative (Negative); Leukocyte Esterase Ur Trace LEU/UL (Negative); Mucus Urine Few /lpf; Nitrate Urine Negative (Negative); Protein Urine 2+ mg/dL (Negative); RBC Urine >75 /hpf (0-2); Urobilinogen Urine Negative mg/dL (<2.0); WBC Urine 21-30 /hpf
[2021-03-02 14:17] LABS: Specific Grav Ur 1.042 (1.001-1.035)
[2021-03-02] MEDS: methylPREDNISolone SOD SUCC 125 MG VIAL 60 MG IV PUSH ×2 (14:20→21:31)
[2021-03-02] MEDS: PERFLUTREN LIPID MICROSPHERES 1.5 ML VIAL DILUTED TO 10 ML TOTAL VOLUME IV PUSH (15:06)
[2021-03-02 16:19] LABS: Glucose Point of Care 89 mg/dl (65-105)
[2021-03-02 17:28] LABS: INR 1.3
[2021-03-02 17:30] LABS: Partial Thromboplastin Time 53.5 SECONDS (22.3-36.8)
[2021-03-02] MEDS: DORNASE ALFA INH SOLN 1 MG/ML 2.5 ML AMP 2.5 MG INHALATION (19:51)
[2021-03-02] MEDS: SALINE LOCK FLUSH 10 ML IV PUSH (21:32)
[2021-03-02] MEDS: HEPARIN SOD/D5W 100 UNITS/ML 25,000 UNITS/250 ML BAG 10 UNITS IV CONT (21:32)
[2021-03-03] VITALS (13 sets, daily range): BP systolic 92–117; BP diastolic 58–80; PULSE 80–88; RESP 23–28; TEMP 36.9–37.3; O2SAT 99–100
[2021-03-03 00:10] LABS: Glucose Point of Care 113 mg/dl (65-105)
[2021-03-03 04:06] LABS: Hematocrit 26.8 % (42.0-52.0); Hemoglobin 8.4 g/dL (14.0-18.0); Immature Granulocyte Absolute 0.05 K/mm3 (0.00-0.031); Immature Granulocyte Percent A 0.6 % (0-0.5); Lymphocytes Absolute Auto 0.32 K/mm3 (0.9-3.2); Mean Corpuscular HGB Conc 31.3 g/dl (32-36); Mean Corpuscular Volume 92.4 fl (80-100); Mean Platelet Volume 11.2 fl (7.4-10.4); Monocytes Absolute Auto 0.1 K/mm3 (0.1-0.6); Monocytes Percent Auto 1.3 % (2.6-8.5); Neutrophils Absolute Auto 7.5 K/mm3 (1.3-6.7); Neutrophils Percent Auto 94.1 % (45.5-73.1); Platelet Count Result 133 k/mm3 (150-375); Red Cell Distribution Width 15.2 % (11.5-14.5); White Blood Count 7.9 K/mm3 (4.5-10.0)
[2021-03-03 04:17] LABS: Alanine Aminotransferase 14 U/L (4-50); Alkaline Phosphatase 82 U/L (38-126); Anion Gap 6 mmol/L (8-16); Aspartate Amino Transferase 23 U/L (17-59); Bilirubin,Total 0.2 mg/dL (0.2-1.3); Blood Urea Nitrogen 11 mg/dL (9-20); Calcium 8.2 mg/dL (8.4-10.2); Carbon Dioxide 26 mmol/L (22-30); Chloride 103 mmol/L (98-107); Estimated CRCL calculation 46 ml/min; Estimated Glomerular Filt Rate > 60; Glucose 114 mg/dL (75-110); Magnesium 1.8 mg/dL (1.6-2.3); Potassium 4.1 mmol/L (3.4-5.0); Sodium 135 mmol/L (137-145)
[2021-03-03 04:21] LABS: Partial Thromboplastin Time 126.7 SECONDS (22.3-36.8)
[2021-03-03 05:20] LABS: Alveolar/Arterial O2 Gradient 115.8 mmHg; Base Excess ABG -2.9 mEq/l (+/-2.0); Carboxyhemoglobin 0.2 % THb (0-2.0); Fractional Inspired Oxygen 32 %; HCO3 ABG 20.9 mEq/l (22.0-26.0); Methemoglobin ABG 0.4 %THb (0-1.5); Oxygen Content ABG 12.8 %vol (16.0-22.0); Oxygen Saturation ABG 95.4 % (95.0-100.0); Oxyhemoglobin 93.9 % THb (90.0-100.0); PCO2 ABG 32.7 mmHg (35.0-45.0); PO2 ABG 74.1 mmHg (80.0-100.0); PO2 FiO2 Ratio Arterial Blood 2.32 %; Reduced Hemoglobin 5.5 %THb (0-5.0); Total Hemoglobin 9.6 g/dL (12.0-18.0); pH ABG 7.424 (7.350-7.450)
[2021-03-03 05:21] LABS: Device NASAL CANNULA; Modified Allen's Test Pass; Site Drawn RIGHT BRACHIAL
[2021-03-03] MEDS: SALINE LOCK FLUSH 10 ML IV PUSH (06:11)
[2021-03-03] MEDS: methylPREDNISolone SOD SUCC 125 MG VIAL 60 MG IV PUSH ×2 (06:11→09:08)
[2021-03-03] MEDS: ALBUTEROL SULFATE NEB 2.5 MG/0.5 ML INH INHALATION (07:43)
[2021-03-03] MEDS: IPRATROPIUM BR 0.02% INH SOLN 0.5 MG/2.5 ML VIAL INHALATION (07:43)
[2021-03-03] MEDS: DORNASE ALFA INH SOLN 1 MG/ML 2.5 ML AMP 2.5 MG INHALATION (07:44)
--- NOTE | 2021-03-03 08:30 | WPDINTPN ---
Progress Note: A&P Assessment and Plan (1) Cardiac arrest: Code(s): I46.9 - Cardiac arrest, cause unspecified Status: Acute Assessment and Plan: Patient had a brief episode where the staff to not feel his pulse and I was told it lasted only 10 seconds. He received 1 compression and then woke up so it is hard to know what exactly happened. Patient has pacemaker and AICD but was not on phototypesetting equipment monitor. Patient was not shocked by his AICD and EKG showed AV paced rhythm at a rate of 80. Pacemaker/AICD interrogation was unremarkable CTA of chest showed a small lingular PE. Patient was started on heparin infusion without bolus after discussion with vascular surgery at [facility] Echocardiogram was done Troponins were negative Blood pressure has been adequate till now but he did get IV fluid bolus Check electrolytes, hemoglobin, lactic acid, troponin Repeat echocardiogram Continue amiodarone Cardiology following (2) Cardiomyopathy: Code(s): I42.9 - Cardiomyopathy, unspecified Status: Acute Assessment and Plan: Echocardiogram Summary 1. Technically difficult study with limited views. 2. Left ventricular chamber dimension is normal. 3. Left ventricular systolic function is mildly reduced, estimated at 45-50%. 4. There is moderately increased left ventricular wall thickness. 5. Left ventricular septal wall motion is abnormal with septal motion related to pacing. 6. There is mild mitral valve regurgitation. 7. There is mild tricuspid valve regurgitation. 8. No pulmonary hypertension, estimated pulmonary arterial systolic pressure is 34 mmHg. 9. There is no TAVR aortic valve stenosis with peak velocity 1.8 m/sec, mean gradient 7 mmHg. 10. There is no regurgitation of the TAVR aortic valve. (3) Abdominal aortic aneurysm: Code(s): I71.4 - Abdominal aortic aneurysm, without rupture Status: Acute Assessment and Plan: CT findings reviewed with radiology and report reviewed. Called and spoke to Dr. Dubois with vascular surgery at [facility]. She does not feel that aneurysm appears any significantly different from the last CT but she is willing to see the patient that if cardiology accept him to CCU. She also said it will be okay to start heparin drip without bolus for his PE. Patient has been accepted by CCU and is waiting to be transferred to [facility] once bed is assigned. (4) Pulmonary embolism: Code(s): I26.99 - Other pulmonary embolism without acute cor pulmonale Status: Acute Assessment and Plan: Small left lingular PE on CTA On heparin infusion (5) DVT (deep venous thrombosis): Code(s): I82.409 - Acute embolism and thrombosis of unspecified deep veins of unspecified lower extremity Status: Acute Assessment and Plan: Lower extremity Dopplers show Oval echogenicity in left common femoral vein most likely thrombus Currently on heparin infusion (6) Acute respiratory failure: Code(s): J96.00 - Acute respiratory failure, unspecified whether with hypoxia or hypercapnia Status: Inactive Assessment and Plan: CT chest showed a small PE and lung nodule. Baseline COPD He is maintaining saturation on nasal cannula. Although he appears tachypneic with mild use of sensory muscles he has been refusing BiPAP and feels that his breathing is at baseline (7) COPD (chronic obstructive pulmonary disease): Code(s): J44.9 - Chronic obstructive pulmonary disease, unspecified Status: Acute Assessment and Plan: Continue DuoNebs and Solu-Medrol (8) Lung nodule: Code(s): R91.1 - Solitary pulmonary nodule Status: Acute Assessment and Plan: It will need to be further evaluated once acute issues of PE and abdominal aortic aneurysm are managed. patient was notified of the results (9) Flail chest: Code(s): S22.5XXA - Flail chest, initial encounter for closed fracture Status: Acute Assessm
[2021-03-03] MEDS: AMIODARONE HCL 200 MG TABLET 400 MG PO (09:08)
[2021-03-03] MEDS: ATORVASTATIN 40 MG TABLET PO (09:08)
[2021-03-03] MEDS: ASPIRIN 81 MG CHEWABLE TABLET 324 MG PO (09:15)
--- NOTE | 2021-03-03 09:22 | PM.PNCARD ---
Progress Note: A&P Additional Plan 70-year-old man with: Significant nonischemic cardiomyopathy after recent cardiac arrest. He is on a standard medical regimen as detailed in the admitting notes. Had an episode of problematic hypotension yesterday. I do not believe there is substantial evidence of a arrhythmic event or of malfunction of his device. He is not on the list awaiting a bed at [facility] for transfer back to that facility. I am going to resume his modest dose of carvedilol today since he is off of pressors and not hypotensive. If he is still here over the weekend we will resume vasodilators therapy as well. Ezequiel Boykin MD [facility] Subjective Date/time seen: Date of service: 03/03/21 09:22 Interval history: 70-year-old man with nonischemic cardiomyopathy. Patient was on rehab service here following recent treatment at [facility] following VFib arrest and evaluation was performed there including implantation of a Bi V ICD. Patient was unresponsive yesterday on rehab and transferred to the ICU. Interrogation of his device did not appear to show any significant arrhythmia. He is awaiting transfer back to [facility] for further evaluation. He also was found to have a small pulmonary embolism after the events of yesterday. He is currently asymptomatic in the ICU room 1. And is no longer on any pressor support. Exam Const: General: comfortable and no acute distress HENMT: Mouth: Yes moist mucous membranes Eyes: Sclera: sclerae normal Pupils: Equal, round and reactive pupils present Neck: Neck: supple and no JVD Thyroid: thyroid normal Resp: Effort & Inspection: normal respiratory effort Auscultation: clear to auscultation bilaterally Other: ICD incision looks clean and dry Steri-Strips are intact Cardio: Rate: regular rate Rhythm: regular rhythm GI: GI Palp: Yes Soft to palpation Auscultation: normal bowel sounds Skin: General skin exam: normal color Neuro: Cognition (Neuro): normal cognition Extrem: Other: Normal arterial perfusion, no peripheral edema Objective Data Vital Signs Vital Signs: Vital Signs - 24 hr 03/02/21 10:00 03/02/21 10:02 03/02/21 11:12 Temperature 35.5 C L Pulse Rate 82 84 Respiratory Rate 28 H Blood Pressure 131/93 H Pulse Oximetry 98 98 98 03/02/21 11:28 03/02/21 11:29 03/02/21 11:30 Temperature 34.4 C L 34.4 C L 34.4 C L Pulse Rate 80 80 Respiratory Rate 32 H 29 H Blood Pressure 75/56 L 86/61 L Pulse Oximetry 98 100 03/02/21 12:00 03/02/21 12:15 03/02/21 12:30 Temperature 34.4 C L 34.3 C L 34.4 C L Pulse Rate 84 80 82 Respiratory Rate 31 H 27 H 24 H Blood Pressure 78/57 L 86/58 L 93/77 L Pulse Oximetry 98 100 96 03/02/21 12:49 03/02/21 13:00 03/02/21 13:30 Temperature 34.3 C L 34.6 C L Pulse Rate 80 82 67 Respiratory Rate 30 H 33 H Blood Pressure 71/50 L 88/35 L Pulse Oximetry 96 97 03/02/21 13:44 03/02/21 13:52 03/02/21 14:00 Temperature 34.7 C L Pulse Rate 80 81 83 Respiratory Rate 30 H 31 H 31 H Blood Pressure 133/96 H Pulse Oximetry 97 03/02/21 14:30 03/02/21 15:00 03/02/21 15:30 Temperature 34.8 C L 34.9 C L 35.2 C L Pulse Rate 83 70 81 Respiratory Rate 27 H 30 H 30 H Blood Pressure 94/67 L 125/75 106/70 Pulse Oximetry 100 100 98 03/02/21 15:57 03/02/21 16:00 03/02/21 16:54 Temperature 35.3 C L 35.7 C L Pulse Rate 80 80 Respiratory Rate 28 H 30 H Blood Pressure 140/75 138/84 Pulse Oximetry 98 98 99 03/02/21 17:29 03/02/21 17:43 03/02/21 17:59 Temperature 36.0 C L 36.1 C L Pulse Rate 82 80 Respiratory Rate 34 H Blood Pressure 119/79 Pulse Oximetry 99 03/02/21 18:00 03/02/21 19:51 03/02/21 20:00 Temperature 36.2 C L 36.4 C L Pulse Rate 80 80 81 Respiratory Rate 32 H 26 H 30 H Blood Pressure 120/73 121/73 Pulse Oximetry 100 100 03/02/21 20:04 03/02/21 22:00 03/03/21 00:00 Temperature 36.6 C 36.9 C Pulse Rate 80 80 82 Respiratory Rate 29 H 24 H 27 H Blood Pressure 104
--- NOTE | 2021-03-03 10:00 | PM.TDS ---
Transfer Discharge Sum: Prov Provider Date of admission: 03/02/21 09:50 Primary care physician: [facility]IC[facility] Admitting clinician: Kiana Feldman MD Consults: 03/02/21 Consult to Physician Routine Comment: ICU ADMISSION Consulting Provider: Hardeep Ling Reason for consultation: ICU ADMISSION Has provider been notified: Yes Consult to Physician Routine Comment: SPOKE WITH DR. RAMOS Consulting Provider: Jorge Luis Ramos regulator mechanic/MD group to consult: Cardiology Reason for consultation: Cardiac Arrest Has provider been notified: Yes DS: Admitting Diagnosis Admitting Diagnosis Admitting Diagnosis: (1) Cardiomyopathy: Code(s): I42.9 - Cardiomyopathy, unspecified Status: Acute (2) Flail chest: Code(s): S22.5XXA - Flail chest, initial encounter for closed fracture Status: Acute (3) Acute hypotension: Code(s): I95.9 - Hypotension, unspecified Status: Acute (4) Hypotension: Code(s): I95.9 - Hypotension, unspecified Status: Acute (5) Cardiogenic shock: Code(s): R57.0 - Cardiogenic shock Status: Acute (6) COPD (chronic obstructive pulmonary disease): Code(s): J44.9 - Chronic obstructive pulmonary disease, unspecified Status: Acute DS: Discharge Diagnosis Discharge Diagnosis (1) Acute hypotension: Code(s): I95.9 - Hypotension, unspecified Status: Acute (2) Lung nodule: Code(s): R91.1 - Solitary pulmonary nodule Status: Acute (3) UTI (urinary tract infection): Code(s): N39.0 - Urinary tract infection, site not specified Status: Acute (4) DVT (deep venous thrombosis): Code(s): I82.409 - Acute embolism and thrombosis of unspecified deep veins of unspecified lower extremity Status: Acute (5) Pulmonary embolism: Code(s): I26.99 - Other pulmonary embolism without acute cor pulmonale Status: Acute (6) Cardiomyopathy: Code(s): I42.9 - Cardiomyopathy, unspecified Status: Acute (7) Anisocoria: Code(s): H57.02 - Anisocoria Status: Acute (8) BPH (benign prostatic hyperplasia): Code(s): N40.0 - Benign prostatic hyperplasia without lower urinary tract symptoms Status: Acute (9) History of ileus: Code(s): Z87.19 - Personal history of other diseases of the digestive system Status: Acute (10) Flail chest: Code(s): S22.5XXA - Flail chest, initial encounter for closed fracture Status: Acute (11) History of difficult intubation: Code(s): Z91.89 - Other specified personal risk factors, not elsewhere classified Status: Acute (12) Hypertension: Code(s): I10 - Essential (primary) hypertension Status: Acute (13) Cardiac arrest: Code(s): I46.9 - Cardiac arrest, cause unspecified Status: Acute (14) Pulmonary hypertension: Code(s): I27.20 - Pulmonary hypertension, unspecified Status: Acute (15) COPD (chronic obstructive pulmonary disease): Code(s): J44.9 - Chronic obstructive pulmonary disease, unspecified Status: Acute (16) Cardiogenic shock: Code(s): R57.0 - Cardiogenic shock Status: Acute (17) Abdominal aortic aneurysm: Code(s): I71.4 - Abdominal aortic aneurysm, without rupture Status: Acute Transfer Discharge Sum: Med Medications Active and Home Medications: Home Medications albuterol 90 mcg INHALATION Q4H PRN 02/28/21 [History Confirmed 03/02/21] albuterol sulfate 2.5 mg INHALATION Q6H PRN 02/28/21 [History Confirmed 03/02/21] ipratropium bromide [Atrovent] 2.5 ml INHALATION BID 02/28/21 [History Confirmed 03/02/21] Transfer Discharge Sum: Hosp Hospital Course Hospital course: Naveen Bonds is a 70 year old male was admitted to ICU after a brief stay in [facility]] where he experienced 2 periods of unresponsiveness. The second episode pt was found to be pulseless and a Code Blue wa
[2021-03-03] MEDS: carvediloL 3.125 MG TABLET PO (10:37)
[2021-03-03 11:16] LABS: Partial Thromboplastin Time 112.5 SECONDS (22.3-36.8)
--- NOTE | 2021-03-03 11:54 | PC.NURSE ---
Pt. transferred to [facility] room #[id number] via [facility]. Report was called to Jefry VALVERDE.
== END 2021-03-03 11:51 | disposition short-term general hospital (02) | DRG 175 ==
PROVIDERS: Internal Medicine; Admitting Provider Hospitalist; Visit Provider Hospitalist
DX: I26.99 Other pulmonary embolism without acute cor pulmonale (principal); S22.5XXA Flail chest, initial encounter for closed fracture; R57.0 Cardiogenic shock; J96.00 Acute respiratory failure, unspecified whether with hypoxia or hypercapnia; I46.9 Cardiac arrest, cause unspecified; I42.8 Other cardiomyopathies; I82.402 Acute embolism and thrombosis of unspecified deep veins of left lower extremity; N39.0 Urinary tract infection, site not specified; I71.4 Abdominal aortic aneurysm, without rupture; R91.1 Solitary pulmonary nodule; I95.9 Hypotension, unspecified; J44.9 Chronic obstructive pulmonary disease, unspecified; I27.20 Pulmonary hypertension, unspecified; F17.210 Nicotine dependence, cigarettes, uncomplicated; H57.02 Anisocoria; N40.0 Benign prostatic hyperplasia without lower urinary tract symptoms; Z86.74 Personal history of sudden cardiac arrest; Z95.2 Presence of prosthetic heart valve; Z95.810 Presence of automatic (implantable) cardiac defibrillator; Z99.81 Dependence on supplemental oxygen; Z91.89 Other specified personal risk factors, not elsewhere classified
CPT/HCPCS: 36415; 36569; 36600; 70450; 71275; 74177; 80053; 81001; 82375; 82805; 82948; 83050; 83605; 83735; 84484; 85025; 85055; 85610; 85730; 87086; 93970; 94640; A9270; C1751; C8929; J0696; J1644; J1650; J2930; J7030; J7040; Q9957; Q9967

== ENCOUNTER 2022-11-20 11:41 | Outpatient (CLI) | payer MEDICARE, MEDICAID, SELFPAY ==
--- NOTE | ~2022-11-20 | PE_ITS ---
EXAMINATION: PET skull to mid thigh DATE: 11/20/2022 13:31 INDICATION: Abnormal chest CT. TECHNIQUE: Blood glucose level was 77 mg/dL. 11.420 mCi of 18-fluorodeoxyglucose (18-FDG) was adminis tered i.v. Low dose computed tomography (CT) images were acquired from the base of the brain to the p roximal thighs for attenuation correction and anatomic localization. Automated exposure control was e mployed. Dose-length product (DLP) was 352 mGy-cm. Positron emission tomography (PET) images were acq uired in the same distribution. COMPARISON: CT chest, abdomen, and pelvis 03/02/2021 FINDINGS: Head/neck: There is increased activity in the major salivary glands, oral cavity, pharynx, glottis, a nd paraspinal muscles without abnormal CT correlate, likely physiologic. There are no pathologically enlarged lymph nodes. Chest: There is mild emphysema. There is a 4.6 x 3.1 cm mass in perihilar left upper lobe with maximu m SUV of 14.9. There are airspace opacities with increased activity in the more peripheral anterior s egment left upper lobe, consistent with pneumonia. No pleural effusion. The heart size is normal. The re are changes of aortic valve replacement. There is ectasia of ascending aorta measuring 4.5 cm. The re are coronary artery calcifications. There is a left chest pacer with leads in right atrium, right ventricle, and coronary sinus. No pericardial effusion. Abdomen/pelvis/proximal thighs: Calcifications in the liver and spleen are consistent with old granul omatous disease. The gallbladder is normal in size. Hyperdense material in the gallbladder may be slu dge or stones. The pancreas, adrenal glands, and left kidney are normal. There is cortical thinning o f right kidney. There is a 6.5 cm cm fusiform aneurysm of infrarenal aorta. The prostate is mildly en larged. There are no dilated loops of bowel. There are no pathologically enlarged lymph nodes. There is no free intraperitoneal fluid. There areas of increased activity in bone marrow without abnormal C T correlate, likely physiologic. IMPRESSION: 1. 4.6 x 3.1 cm mass in perihilar left upper lobe with increased activity, consistent with primary br onchogenic carcinoma. 2. Postobstructive pneumonia in anterior segment left upper lobe. 3. 6.5 cm fusiform aneurysm of infrarenal aorta, stable from 03/02/2021. Reviewed, dictated and finalized at location A. ICAL NURSE REVIEWER IMPRESSION: 1. 4.6 x 3.1 cm mass in perihilar left upper lobe with increased activity, cons istent with primary bronchogenic carcinoma. 2. Postobstructive pneumonia in anterior segment left upper lobe. 3. 6.5 cm fusiform aneurysm of infrarenal aorta, stable from 03/02/2021.
[2022-11-20 12:07] LABS: Glucose Point of Care 77 mg/dl (65-105)
== END 2022-11-20 11:42 | disposition home or self-care (01) ==
LOC: ANHIMG 11:42
PROVIDERS: Visit Provider Internal Medicine
DX: R91.1 Solitary pulmonary nodule (principal); J18.9 Pneumonia, unspecified organism; I71.40 Abdominal aortic aneurysm, without rupture, unspecified
CPT/HCPCS: 78815; A9552